=== PATIENT | female | born 1985 | race Caucasian/White ===

== ENCOUNTER 2019-05-09 18:31 | Emergency (ER) | payer OTHER ==
[2019-05-09] MEDS ORDERED: CODEINE 30MG/APAP 300MG TAB ONE (21:09)
--- NOTE | 2019-05-09 21:36 | RAD REPORT ---
EXAM DESCRIPTION: RAD - Wrist Left 3 View - 05/09/2019 9:19 pm CLINICAL HISTORY: PAIN Pain COMPARISON: No comparisons FINDINGS: No fracture or dislocation seen. Mild soft tissue swelling is seen adjacent to the ulnar styloid.
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
== END 2019-05-09 22:01 | disposition home or self-care (01) ==
LOC: ER 18:31
DX: S16.1XXA Strain of muscle, fascia and tendon at neck level, initial encounter (principal); S60.212A Contusion of left wrist, initial encounter; S60.511A Abrasion of right hand, initial encounter; V49.49XA Driver injured in collision with other motor vehicles in traffic accident, initial encounter; Z98.82 Breast implant status
CPT/HCPCS: 70450; 72125; 99283